=== PATIENT | female | born 1995 | race Caucasian/White ===

== ENCOUNTER → 2023-08-28 06:36 | Outpatient (REF) | payer OTHER, SELFPAY | LOC: HWRAD 06:36 | PROVIDERS: ATTENDING PHYSICIAN Internal Medicine Hematology & Oncology; FAMILY PHYSICIAN Physician Assistant | DX: D69.6 Thrombocytopenia, unspecified (principal); D72.829 Elevated white blood cell count, unspecified | CPT/HCPCS: 76700 ==

== ENCOUNTER → 2024-08-11 13:12 | Outpatient (REF) | payer OTHER, SELFPAY | LOC: RAD 13:12 | PROVIDERS: ATTENDING PHYSICIAN Student in an Organized Health Care Education/Training Program; FAMILY PHYSICIAN Obstetrics & Gynecology | DX: O00.90 Unspecified ectopic pregnancy without intrauterine pregnancy (principal) | CPT/HCPCS: 76801; 76817 ==

== ENCOUNTER → 2024-10-19 17:54 | Outpatient (REF) | payer OTHER, SELFPAY | LOC: RAD 17:54 | PROVIDERS: ATTENDING PHYSICIAN Obstetrics & Gynecology; FAMILY PHYSICIAN Physician Assistant | DX: M79.605 Pain in left leg (principal) | CPT/HCPCS: 93971 ==

== ENCOUNTER → 2024-10-23 11:14 | Outpatient (REF) | payer OTHER, SELFPAY | LOC: HWRAD 11:14 | PROVIDERS: ATTENDING PHYSICIAN Obstetrics & Gynecology; FAMILY PHYSICIAN Physician Assistant | DX: R31.29 Other microscopic hematuria (principal) | CPT/HCPCS: 76770 ==

== ENCOUNTER → 2024-10-29 15:11 | Outpatient (REF) | payer OTHER, SELFPAY | LOC: PNTC 15:11 | PROVIDERS: ATTENDING PHYSICIAN Obstetrics & Gynecology | DX: O99.210 Obesity complicating pregnancy, unspecified trimester (principal) | CPT/HCPCS: 76805 ==

== ENCOUNTER 2025-02-15 16:14 | Observation (INO) | payer OTHER, SELFPAY ==
[2025-02-15 16:40] LABS: Hematocrit 31.9 % (37.0-47.0); Hemoglobin 10.7 g/dL (12.0-16.0); Mean Corp Hgb Conc. 33.5 g/dL (33.0-37.0); Mean Corpuscular Volume 89.1 fL (81.0-99.0); Platelet Count 389 10^3/uL (130-400); Red Cell Dist. Width 12.2 % (11.5-14.5)
[2025-02-15 16:44] VITALS: BP 119/69; BMI 39.5
== END 2025-02-15 18:10 | disposition home or self-care (01) ==
LOC: PNTC-IN 16:14
PROVIDERS: ADMITTING PHYSICIAN Obstetrics & Gynecology
DX: O9A.213 Injury, poisoning and certain other consequences of external causes complicating pregnancy, third trimester (principal); W50.0XXA Accidental hit or strike by another person, initial encounter; Y93.9 Activity, unspecified; Y92.9 Unspecified place or not applicable; S36.39XA Other injury of stomach, initial encounter; Z3A.32 32 weeks gestation of pregnancy
CPT/HCPCS: 76816; 85027; 85460; 86850; 86900; 86901; G0378

== ENCOUNTER 2025-03-27 17:13 | Observation (INO) | payer OTHER, SELFPAY ==
[2025-03-27 17:28] VITALS: BMI 41.2
[2025-03-27 17:49] LABS: Hematocrit 31.7 % (37.0-47.0); Hemoglobin 10.5 g/dL (12.0-16.0); Mean Corp Hgb Conc. 33.1 g/dL (33.0-37.0); Mean Corpuscular Volume 87.8 fL (81.0-99.0); Platelet Count 394 10^3/uL (130-400); Red Cell Dist. Width 12.9 % (11.5-14.5)
[2025-03-27] MEDS: BENADRYL 25 MG PO (18:08)
[2025-03-27 18:16] LABS: ALT (SGPT) 15 U/L (0-35); AST (SGOT) 19 U/L (14-36); Albumin 3.5 g/dl (3.5-5.0); Alkaline Phosphatase 127 U/L (38-126); Blood Urea Nitrogen 8 mg/dl (7-17); Calcium 9.2 mg/dl (8.4-10.2); Carbon Dioxide 22 mmol/L (22-30); Chloride 107 mmol/L (98-107); Estimated Creatinine Clearance > 125 ml/min; Glucose 117 mg/dl (70-99); Potassium 4.7 mmol/L (3.5-5.1); Sodium 133 mmol/L (135-145); Total Protein 6.3 g/dl (6.3-8.2); eGFR > 60.00
[2025-03-27] MEDS: REGLAN 10 MG PO (18:19)
== END 2025-03-27 18:36 | disposition home or self-care (01) ==
LOC: LDRP 17:13
PROVIDERS: ADMITTING PHYSICIAN Obstetrics & Gynecology; ATTENDING PHYSICIAN Student in an Organized Health Care Education/Training Program
DX: O26.893 Other specified pregnancy related conditions, third trimester (principal); R51.9 Headache, unspecified; Z3A.38 38 weeks gestation of pregnancy; Z83.3 Family history of diabetes mellitus; Z80.0 Family history of malignant neoplasm of digestive organs
CPT/HCPCS: 36415; 80053; 82570; 84156; 85027; 86850; 86900; 86901; G0378

== ENCOUNTER → 2025-03-29 13:45 | Outpatient (REF) | payer OTHER, SELFPAY | LOC: RAD 13:45 | PROVIDERS: ATTENDING PHYSICIAN Obstetrics & Gynecology; FAMILY PHYSICIAN Physician Assistant | DX: M79.605 Pain in left leg (principal) | CPT/HCPCS: 93971 ==

== ENCOUNTER 2025-03-31 22:59 | Observation (INO) | payer OTHER, SELFPAY ==
[2025-03-31 23:21] VITALS: BMI 35.3
[2025-03-31 23:29] VITALS: BP 132/83
== END 2025-04-01 02:09 | disposition home or self-care (01) ==
LOC: LDRP 22:59
PROVIDERS: ADMITTING PHYSICIAN Obstetrics & Gynecology
DX: O47.1 False labor at or after 37 completed weeks of gestation (principal); Z3A.39 39 weeks gestation of pregnancy; O99.013 Anemia complicating pregnancy, third trimester; D64.9 Anemia, unspecified; O99.213 Obesity complicating pregnancy, third trimester
CPT/HCPCS: 59899; G0378

== ENCOUNTER 2025-04-01 04:40 | Inpatient (IN) | payer OTHER, SELFPAY ==
[2025-04-01 04:45] VITALS: BMI 35.3
[2025-04-01 05:01] VITALS: BP 119/80
[2025-04-01] MEDS: XYLOCAINE-MPF 1% VIAL 30 ML INFIL (05:28)
[2025-04-01] MEDS: PITOCIN 30 UNITS/NSS 500 ML IV (05:28)
[2025-04-01 05:44] LABS: Hematocrit 35.5 % (37.0-47.0); Hemoglobin 11.6 g/dL (12.0-16.0); Mean Corp Hgb Conc. 32.7 g/dL (33.0-37.0); Mean Corpuscular Volume 90.3 fL (81.0-99.0); Platelet Count 426 10^3/uL (130-400); Red Cell Dist. Width 13.0 % (11.5-14.5)
[2025-04-01] MEDS: MOTRIN 600 MG PO ×3 (06:18→23:51)
[2025-04-01] MEDS: TYLENOL 650 MG PO ×3 (06:19→23:51)
[2025-04-01 06:57] LABS: Nucleated Red Blood Cells % 0 %
[2025-04-01] MEDS: PRENATAL PLUS 1 TABLET PO (07:57)
[2025-04-01] MEDS: COLACE 100 MG PO ×2 (07:57→20:12)
[2025-04-02 05:50] LABS: Hematocrit 28.4 % (37.0-47.0); Hemoglobin 9.4 g/dL (12.0-16.0)
[2025-04-02] MEDS: PRENATAL PLUS 1 TABLET PO (08:38)
[2025-04-02] MEDS: COLACE 100 MG PO ×2 (08:38→21:02)
[2025-04-02] MEDS: MOTRIN 600 MG PO ×3 (08:39→23:03)
[2025-04-02] MEDS: TYLENOL 650 MG PO ×3 (08:40→23:03)
[2025-04-02 13:33] LABS: Syphilis/T. pallidum Ab Reflex Negative (Negative)
[2025-04-03] MEDS: MOTRIN 600 MG PO (05:42)
[2025-04-03] MEDS: TYLENOL 650 MG PO (05:42)
[2025-04-03] MEDS: PRENATAL PLUS 1 TABLET PO (08:16)
[2025-04-03] MEDS: COLACE 100 MG PO (08:16)
== END 2025-04-03 12:27 | disposition home or self-care (01) | DRG 807 ==
LOC: LDRP 04:40
PROVIDERS: ADMITTING PHYSICIAN Obstetrics & Gynecology
PROC: 10E0XZZ Delivery of Products of Conception, External Approach (ICD-10-PCS; 2025-04-01)
PROC: 0KQM0ZZ Repair Perineum Muscle, Open Approach (ICD-10-PCS; 2025-04-01)
DX: O70.1 Second degree perineal laceration during delivery (principal); Z37.0 Single live birth; O71.82 Other specified trauma to perineum and vulva; Z3A.39 39 weeks gestation of pregnancy
CPT/HCPCS: 85014; 85018; 85025; 86780; 86850; 86900; 86901